=== PATIENT | female | born 1995 | race Two or more races ===

== ENCOUNTER 2025-03-23 17:11 | Inpatient (IN) | payer BC, MEDICAID, SELFPAY ==
[2025-03-23] VITALS (59 sets, daily range): BP systolic 98–139; BP diastolic 56–96; PULSE 69–115; RESP 16–99; TEMP 36.5–36.6; O2SAT 91–100; BMI 30.3
--- NOTE | 2025-03-23 17:52 | PD.LDHP ---
Documentation for date of: 03/23/25 OB Labor/Induct. HPI History of Present Illness : 3 History of present illness: H and P dictated on STAT line in Nuance #9 : [id number] History of Present Adequate Care: Yes Meds Home Medications and Allergies Allergies Allergy/AdvReac Type Severity Reaction Status Date / Time No Known Allergies Allergy Verified 03/23/25 17:24 OB Exam Physical Exam Vital signs: Temp Pulse Resp BP Pulse Ox 97.7 F 90 18 129/96 H 98 03/23/25 17:16 03/23/25 17:18 03/23/25 17:16 03/23/25 17:18 03/23/25 17:49
[2025-03-23 19:12] LABS: Basophils # (Auto) 0.0 Thou/mm3 (0.0-0.2); Basophils % (Auto) 0 % (0-2.5); Eosinophils # (Auto) 0.0 Thou/mm3 (0.0-0.5); Eosinophils % (Auto) 0 % (0-10); Hematocrit 35.6 % (36.0-46.0); Hemoglobin 11.7 g/dL (12.0-16.0); Immature Granulocytes Auto 0.04 Thou/mm3 (0.00-0.00); Lymphocytes # (Auto) 1.7 Thou/mm3 (1.0-4.8); Lymphocytes % (Auto) 21 % (10-50); Mean Corpuscular HGB Conc 32.9 g/dl (31.0-37.0); Mean Corpuscular Hemoglobin 29.0 pg (25.0-35.0); Mean Corpuscular Volume 88 fL (80-100); Monocytes # (Auto) 0.9 Thou/mm3 (0.0-0.8); Monocytes % (Auto) 11 % (0-12); Neutrophils # (Auto) 5.6 Thou/mm3 (1.8-7.7); Neutrophils % (Auto) 68 % (37-80); Nucleated Red Blood Cell # 0.00 Thou/mm3 (0.00-0.00); Nucleated Red Blood Cell % 0 /100 WBC (0); Platelet Count 222 Thou/mm3 (140-440); RDW Standard Deviation 45.9 fL (36.4-46.3); Red Blood Count 4.03 Miln/mm3 (4.00-5.20); White Blood Count 8.3 Thou/mm3 (3.6-11.0)
[2025-03-23 19:50] LABS: Syphilis Nonreactive (Nonreactive)
--- NOTE | 2025-03-23 21:56 | PD.LDDS ---
DS: Providers Provider Date of admission: 03/23/25 17:43 Primary care physician: Physician No Primary/Family Admitting Provider: Juventino Roberts MD Attending Provider on Admission: Juventino Roberts MD Attending Provider on DC: Juventino Roberts MD Discharging Provider: Juventino Roberts MD DS: Diagnosis Problem List Completed Was Problem List Reviewed/Reconciled?: Yes Summary/Hosp Course Brief History: H and P dictated on STAT line in ance #9 : [id number] Time Spent with Patient Time attestation: Total time spent providing and/or coordinating discharge services: Exam Vital Signs Temp Pulse Resp BP Pulse Ox 97.7 F 89 18 114/75 99 03/23/25 19:23 03/23/25 21:49 03/23/25 19:23 03/23/25 21:49 03/23/25 21:46 Discharge Plan Plan Patient Disposition: HOME (Self Care) Patient condition on transfer: Stable Prescriptions/Referrals Prescriptions/Med Rec: New ibuprofen 600 mg tablet 600 mg PO Q6H PRN (Reason: pain) Qty: 30 0RF Referrals: No Primary/Family,Physician [Primary Care Provider] Patient/Caregiver Discharge Instructions Discharge Activity: activity as tolerated Other Discharge Activity Instructions:: Follwo up office 6 weeks; Education Materials: C Section Dc Print Language: Japanese Activity Restrictions/Additional Instructions: follow up in 6 weeks Stand Alone Forms: Isabelle Award Info., Patient Portal Info Letter Discharge Order Discharge Orders: Discharge (Routine); Ordered 03/25/25 Ordered By: Juventino Roberts Planned Discharge Date 03/24/25
[2025-03-23] MEDS: BENZO/LANO/ALOE (Dermoplast) 60 GM CAN 1 SPRAY TOP (23:42)
[2025-03-24] VITALS: BP 113/68; PULSE 77; RESP 18; TEMP 36.9
[2025-03-24 00:04] VITALS: BP 113/68; PULSE 77
[2025-03-24 04:00] VITALS: BP 113/73; PULSE 83; RESP 16; TEMP 36.6; O2SAT 96
--- NOTE | 2025-03-24 04:26 | PD.LDDELS ---
Data ([place]) Data Hx Section: No : 3 Term: 2 : 0 Livin Abortions: Spontaneous & Theraputic: 0 Delivery Data (Ennis) Labor Data Initiation of labor: Spontaneous Induction/Augmentation Agent: None ROM date: 03/23/25 ROM time: 21:43 Amniotic membrane rupture type: Spontaneous Amniotic fluid description: Clear Delivery Data EDC: 04/04/25 EDC calculated by:: LMP/early US confirmation Onset of labor date: 03/23/25 Onset of labor time: 04:00 Complete dilation date: 03/23/25 Complete dilation time: 21:11 [place] delivery date: 03/23/25 [place] delivery time: 21:43 Gestational age (weeks): 38 Gestational age (days): 3 Placenta delivery date: 03/23/25 Placenta delivery time: 21:47 Stage 1 total time: Labor - Stage 1 Duration 17 hours and 11 minutes Delivered by: Dr Roberts Delivery nurse: Newton Figueroa [employer] [place] nurse: Verónica Gonzales RN [employer] Good[employer] Maker at delivery: No Support person(s) at delivery: FOB and pt mother Other staff at delivery: Isabella Singer contracts manager Method Delivery method: Normal Vaginal Delivery Presentation: Vertex position: OA Anesthesia Type Anesthesia Type: Epidural Placenta Placenta delivery description: Spontaneous Cord blood sent to lab: Yes cord blood collection: Cord Blood Type Episiotomy Episiotomy description: None Lacerations #1: Perineal: 2nd degree Perineal repair Sutures used for repair: 3.0 Chromic EBL Estimated blood loss (ml): 150 Umbilical Cord cord description: 3 Vessels Additional Procedures None Complications Complications: None [place] Data ([place]nis) Data order: 1 [place]'s gender: Female Identification band number: [id number] weight (gms): 6 lb 5.942 oz Weight (pounds): 6 lbs and 5.9 ozs length: 20 in 1 minute: 9 5 minutes: 10
[2025-03-24 06:52] LABS: Basophils # (Auto) 0.0 Thou/mm3 (0.0-0.2); Basophils % (Auto) 0 % (0-2.5); Eosinophils # (Auto) 0.0 Thou/mm3 (0.0-0.5); Eosinophils % (Auto) 0 % (0-10); Hematocrit 31.0 % (36.0-46.0); Hemoglobin 10.1 g/dL (12.0-16.0); Immature Granulocytes Auto 0.05 Thou/mm3 (0.00-0.00); Lymphocytes # (Auto) 1.8 Thou/mm3 (1.0-4.8); Lymphocytes % (Auto) 13 % (10-50); Mean Corpuscular HGB Conc 32.6 g/dl (31.0-37.0); Mean Corpuscular Hemoglobin 28.8 pg (25.0-35.0); Mean Corpuscular Volume 88 fL (80-100); Monocytes # (Auto) 1.6 Thou/mm3 (0.0-0.8); Monocytes % (Auto) 12 % (0-12); Neutrophils # (Auto) 9.9 Thou/mm3 (1.8-7.7); Neutrophils % (Auto) 74 % (37-80); Nucleated Red Blood Cell # 0.00 Thou/mm3 (0.00-0.00); Nucleated Red Blood Cell % 0 /100 WBC (0); Platelet Count 175 Thou/mm3 (140-440); RDW Standard Deviation 45.3 fL (36.4-46.3); Red Blood Count 3.51 Miln/mm3 (4.00-5.20); White Blood Count 13.3 Thou/mm3 (3.6-11.0)
--- NOTE | 2025-03-24 07:02 | ESPR_ITS ---
RE: MELA COHEN : 1995 DATE OF SERVICE: 03/24/2025 SUBJECTIVE: day 1. Patient denies any problem or complaint. OBJECTIVE: Vital Signs: Blood pressure 113/73, heart rate 83, respirations 16, temperature is 97.8, pulse ox is 96 % on room air. Lungs: Clear to auscultation bilaterally. Cardiovascular: Heart regular rate and rhythm. Abdomen: Fundus is firm. Extremities: Nontender. ASSESSMENT: day 1 status post spontaneous vaginal delivery. PLAN: Discharge home when baby is cleared, discharge instructions given, follow up in the office in 6 weeks. DT: 06:31:02 TT: 07:00:00 Ref: [id number] - TID: [id number]
[2025-03-24 07:49] VITALS: BP 122/80; PULSE 76; RESP 16; TEMP 36.6; O2SAT 96
--- NOTE | 2025-03-24 10:22 | ESHP_ITS ---
RE: MELA COHEN : 1995 DATE OF ADMISSION: 03/23/2025 HISTORY OF PRESENT ILLNESS: This is a 29-year-old 3, para 2-0-0-2 with due date of 04/04 with intrauterine at 38 weeks and 2 days who presents to labor and delivery, complaining of contractions and is noted by RN to be 3 cm, in early labor. The patient denies any leaking or bleeding. She reports normal movement and she has care with [facility], although her 3-hour glucose tolerance test was normal; she did have one of the values abnormal. Her most recent ultrasound on 03/07 showed overall growth at the 18th percentile with an estimated weight of 5 pounds 7 ounces. Her group B strep was negative. ALLERGIES: NO KNOWN DRUG ALLERGIES. MEDICATIONS: multivitamin 1 p.o. daily. PAST MEDICAL HISTORY: Scoliosis. FAMILY HISTORY: Denies. OB HISTORY: In 2018, 40-week normal vaginal delivery 5 pounds 5 ounce female, no complications. In 2020 40-week normal vaginal delivery 6 pound 15 ounce female, no complications. PAST SURGICAL HISTORY: Denies. REVIEW OF SYSTEMS: She denies any headache, change of vision, or right upper quadrant pain. She denies any chest pain, palpitations, cough, fever, shortness of breath, flank pain or lower extremity pain. PHYSICAL EXAM: VITAL SIGNS: Blood pressure 129/96. Heart rate 90. Respiration 18. Temperature 97.7. Weight is 158 pounds. HEENT: Oropharynx and sclerae clear. LUNGS: Clear to auscultation bilaterally. HEART: Regular rate and rhythm. ABDOMEN: Gravid consistent with estimated weight 6.5 pounds. PELVIC: See RN notes. EXTREMITIES: Nontender. SKIN: No gross rashes or lesions. NEUROLOGIC: No focal deficit. ASSESSMENT AND PLAN: Intrauterine at 38 weeks and 2 days, in early labor. Anticipate spontaneous vaginal delivery. Informed consent was obtained. The patient made aware of the risk, complications, alternatives, and benefits of operative vaginal delivery and delivery and agrees with these modes of delivery if indicated. DT: 17:51:58 TT: 19:08:00 Ref: [id number] - TID: [id number]
[2025-03-24] MEDS: IBUPROFEN TAB 400 MG TABLET 800 MG PO ×2 (11:48→20:27)
[2025-03-24 16:20] VITALS: BP 109/74; PULSE 89; RESP 18; TEMP 36.6; O2SAT 96
[2025-03-24 20:10] VITALS: BP 110/74; PULSE 62; RESP 17; TEMP 36.4; O2SAT 99
[2025-03-25 03:51] VITALS: BP 114/77; PULSE 72; RESP 16; TEMP 36.5; O2SAT 97
[2025-03-25 07:20] VITALS: BP 109/71; PULSE 80; RESP 16; TEMP 36.7; O2SAT 97
--- NOTE | 2025-03-25 07:42 | ESPR_ITS ---
RE: MELA COHEN : 1995 DATE OF SERVICE: 03/25/2025 day number 2. The patient denies any problem or complaint. She is voiding. She is ambulating. She is tolerating diet. She is passing flatus. She denies any excessive vaginal bleeding. She denies any dizziness or lightheadedness. She denies any chest pain, palpitations, shortness of breath or lower extremity pain. Blood pressure 114/77, heart rate 72, respirations 16, temperature is 97.7. Pulse ox is 97% on room air. Lungs clear to auscultation bilaterally. Heart, regular rate and rhythm. Abdomen, fundus is firm. Extremities nontender. Hemoglobin pre-delivery is 11.7, post-delivery is 10.1. ASSESSMENT: day number 2, status post spontaneous vaginal delivery. PLAN: Discharge home. Discharge instructions given. Follow up in the office in 6 weeks. DT: 07:23:36 TT: 07:40:00 Ref: [id number] - TID: [id number]
[2025-03-25] MEDS: INFLUENZA VIRUS QUADRIVALENT 0.5 ML SYRINGE IMi (11:27)
== END 2025-03-25 13:10 | disposition home or self-care (01) | DRG 807 ==
LOC: S4NX 03-24 06:14 → S4SX 03-24 06:14
PROVIDERS: Admitting Provider Specialist; Visit Provider Specialist
DX: O70.1 Second degree perineal laceration during delivery (principal); Z37.0 Single live birth; Z3A.38 38 weeks gestation of pregnancy
CPT/HCPCS: 36415; 59025; 85025; 86780; 86850; 86900; 86901; 90686; J2795; J3010; A9270; J9060

== ENCOUNTER 2025-03-30 15:59 | Emergency (ER) | payer BC, MEDICAID, SELFPAY ==
[2025-03-30 16:15] VITALS: BP 160/105; PULSE 66; RESP 16; TEMP 36.7; O2SAT 98; BMI 37.8
--- NOTE | 2025-03-30 16:24 | XR_ITS ---
Examination: Duplex scan of the lower extremity, unilateral right complete Date and time of exam: March 30, 2025, 1630 hours INDICATIONS: Right leg swelling and pain beginning 2 days ago Technique: Duplex scan of the extremity veins using B-mode/grayscale imaging and Doppler spectral analysis and color flow Attention is directed to internal echogenicity, compression and augmentation involving these veins, color flow assessment, spectral analysis Findings: Major deep venous structures in the extremity demonstrate normal course and caliber. There is no evidence of deep vein thrombosis. Normal color flow and spectral analysis Impression: Negative for DVT..
--- NOTE | 2025-03-30 16:54 | EDNOTE_ITS ---
ED General RME/HPI General Chief complaint: General Adult/Misc Complain Stated complaint: B/L LE SWELLING Time Seen by Provider: 03/30/25 16:04 Arrival date/time: 03/30/25 15:59 29-year-old female 6 days presents to the emergency department complaint of bilateral lower extremity swelling Limitations: no limitations Related Data Previous Rx's ?Medication ?Instructions ?Recorded ibuprofen 600 mg tablet 600 mg PO Q6H PRN pain #30 t abs 03/24/25 Allergies Allergy/AdvReac Type Severity Reaction Status Date / Time No Known Allergies Allergy Verified 03/30/25 16:01 Review of Systems Review of Systems Systems Reviewed: All systems reviewed, normal except as documented Constitutional Constitutional: Reports system reviewed and no additional complaints, except as documented, Denies fever(s) and Denies headache(s) Eyes Eyes: Reports system reviewed and no additional complaints, except as documented and Denies blurry vision ENT Ears, Nose, Mouth, and Throat: Reports system reviewed and no additional complaints, except as documented, Denies headache(s), Denies nasal congestion and Denies nasal discharge Cardiovascular Cardiovascular: Reports system reviewed and no additional complaints, except as documented, Denies chest pain and Denies dyspnea Respiratory Respiratory: Reports system reviewed and no additional complaints, except as documented, Denies chest congestion, Denies cough and Denies dyspnea Gastrointestinal Gastrointestinal: Reports system reviewed and no additional complaints, except as documented and Denies abdominal pain Musculoskeletal Musculoskeletal: Reports system reviewed and no additional complaints, except as documented and Reports other (Bilateral lower extremity swelling) Integumentary/Breasts Skin/Breast: Reports system reviewed and no additional complaints, except as documented and Denies rash Neurologic Neurologic: Reports system reviewed and no additional complaints, except as documented, Reports as per HPI and Denies headache(s) Past Medical History Past Medical History NEUROLOGIC: Negative Neurological Disorders or Seizures CARDIAC: Negative Cardiac Disorders or Congestive Heart Failure RESPIRATORY: Negative Chronic Obstructive Pulmonary Disease (COPD) or Asthma GASTROINTESTINAL: Negative Gastrointestinal Disorders GENITOURINARY: Negative Genitourinary Disorders or Renal Disease REPRODUCTIVE: Positive Previous Pregnancies; Negative Pelvic Inflammatory Disease MUSCULOSKELETAL: Positive Musculoskeletal Disorders and Scoliosis ENDOCRINE: Negative Endocrine Disorders, Diabetes Mellitus Type 1 or Diabetes Mellitus Type 2 HEMATOLOGIC: Positive Blood Disorders and Anemia PSYCHO/SOCIAL: Positive Depression (1 MO AGO NO MEDS) and Anxiety; Negative Depression OTHER HISTORY: Negative Hospitalization, Autoimmune Disease, Down Syndrome, De velopmental Delay, Shingles, Falls, Blood Transfusions, Blood Transfusion Reaction, Anesthesia Reactions, MRSA, VRSA, Vancomycin-Resistant Enterococci, Clostridium Difficile or Cancer Family History FAMILY HISTORY: Negative Family Psychiatric Problems, Family Respiratory Disorders, Family Cardiac Disorders, Family Gastrointestinal Problems, Family Cancer, Family Surgery or Family Anesthesia Reaction Surgical History SURGICAL: Negative Endocrine Surgery or Section Social History SMOKING STATUS: Never smoker SECOND HAND EXPOSURE: No ED Exam General Limitations: Present no limitations General appearance: Present alert and in no apparent distress Head Head exam: Present atraumatic Eye Eye exam: Present normal appearance, PERRL and EOMI ENT ENT exam: Present normal exam, normal oropharynx and mucous membranes moist Neck Neck exam: Present normal inspection, full ROM and trachea midline Chest Chest inspection: Present normal inspection and symmetric chest wall rise Respiratory Respiratory exam: Present normal lung sounds bilaterally Cardiovascular Cardiovascular exam: Present regular rate, normal rhythm and normal heart sounds Abdominal Exam Abdominal exam: Present soft and normal bowel sounds Extremities Exam Extremities exam: Present full ROM, tenderness, normal capillary refill, pedal edema, calf tenderness and other (Bilateral extremity swelling); Absent joint swelling Back Exam Back exam: Present normal inspection and full ROM Neurological Exam Neurological exam: Present alert, oriented X3 and CN II-XII intact Psychiatric Psychiatric exam: Present normal affect and normal mood Skin Skin exam: Present warm, dry, intact and normal color Course Quality Measures none Orders Category Date Time Status US venous doppler LE RT Stat Exams 03/30/25 16:24 Taken Vital Signs Vital signs: Vital Signs Temperature 98.1 F 03/30/25 16:15 Pulse Rate 66 03/30/25 16:15 Respiratory Rate 16 03/30/25 16:15 Blood Pressure 160/105 H 03/30/25 16:15 Pulse Oximetry (%) 98 03/30/25 16:15 Oxygen Delivery Method Room Air 03/30/25 16:15 O2 saturation 98% on room air within normal limits Discharge Plan Plan Patient Disposition: HOME (Self Care) Discharge Disposition comment: Stable Prescriptions/Referrals Prescriptions/Med Rec: No Action ibuprofen 600 mg tablet 600 mg PO Q6H PRN (Reason: pain) Qty: 30 0RF Referrals: No Primary/Family,Physician [Primary Care Provider] - 04/04/25 Problem List Clinical Impression: Edema of both lower legs Patient/Caregiver Discharge Instructions Education Materials: ED Leg Swelling in Both Legs Additional Instructions: Please follow up with your primary care doctor in the next 24-48hrs for any worsening symptoms return here immediately Please keep your legs elevated Print Language: Burkinan Stand Alone Forms: Isabelle Award Info., Patient Portal Info Letter PA/FELLING MACHINE OPERATOR Supervising Physician PA/FELLING MACHINE OPERATOR Supervising Physician: Dr. Tijerina MDM Narrative MDM hospital course (for use when minimal MDM required): 29-year-old female 6 days presents to the emergency department complaint of bilateral lower extremity swelling On exam patient well-appearing patient not appear toxic no acute distress Patient has mild lower extremity swelling bilaterally worse on the right Doppler ultrasound obtained to rule out DVT which is negative for suspected Symptoms consistent with dependent edema secondary to childbirth Patient discharged home in no distress to follow-up with primary care doctor in the next 24 to 48 hours and for any worsening symptoms to return to the ER immediately Clinical Information Provided by: none Medical Records reviewed [facility] Meds/Rx considered, not ordered None Labs/Rad/Tests considered, not ordered None Chronic Illness/Social Conditions which may negatively complicate care or outcome(s)-explain: None or not applicable EKG EKG not done Labs Labs: none Imaging Imaging interpretation: see narrative above Imaging Interpretation(s): Reviewed by me Medication Administration(s) none Diagnosis Differential Diagnosis ED Complaint MDM: DVT, dependent edema lymphedema
== END 2025-03-30 17:17 | disposition home or self-care (01) ==
PROVIDERS: Emergency Provider Emergency Medicine
DX: R60.0 Localized edema (principal)
CPT/HCPCS: 93971; 99282